=== PATIENT | male | born 1950 | race Caucasian/White ===

== ENCOUNTER → 2020-07-23 08:11 | Outpatient (CLI) | payer OTHER | END | disposition home or self-care (01) | LOC: D.MRI 08:11 | PROVIDERS: ATTEND Orthopaedic Surgery | DX: M54.5 Low back pain (principal) ==

== ENCOUNTER → 2021-02-11 10:09 | Outpatient (CLI) | payer OTHER ==
--- NOTE | 2021-02-08 13:23 | NUR ---
ATTEMPTED TO CONTACT PT TWICE FOR APPT CONFIRMATION ON THURSDAY - NO ANSWER. LEFT MESSAGE TO CALL BACK.
--- NOTE | ~2021-02-11 | HEMODYNAMI ---
PATIENT:JAMAL YAÑEZ MEDICAL RECORD: [id number] : 46 LOCATION:[facility] ADMISSION DATE: 02/11/21 Generatedon:110:48 Patient name: JAMAL YAÑEZ Patient #: [id number] SSN: : 1950 Date of study: 02/11/2021 Page: Of Hemodynamic Procedure Report Patient Data Patient Demographics Procedure consent was obtained First Name: JAMAL Gender: Male Last Name: OTILIO : 1950 Middle Initial: A Age: 70 year(s) Patient #: [id number] Race: Unknown Additional ID: [id number] Contact details Address: [place] [address] State: [place] City: [place] Zip code: [address] Past Medical History Allergies: No known allergies Admission Admission Data Admission Date: 02/11/2021 Admission Time: 10:09 Procedure Procedure Types Cath Procedure Peripheral Cath Diagnostic Procedure Miscellaneous Aspiration/Injection (Joint) Procedure Description Procedure Date Procedure Date: 02/11/2021 Procedure Start Time: 10:38 Procedure Staff Name Function James Husain MD Performing Physician Heather Malhotra RT Law Tutor Jaime Camacho RT Scrub Procedure Data Cath Procedure Fluoroscopy Diagnostic fluoroscopy Total fluoroscopy Time: 0.3 time: 0.3 min min Diagnostic fluoroscopy Total fluoroscopy dose: 38 dose: 38 mGy mGy Contrast Material Contrast Material Type Amount (ml) Isovue 200 7 Hemodynamics Rest Pre Cath Intra NCS Post Cath Procedure Log Time Note 10:23:33 SAFE-T PLUS MYELOGRAM TRAY opened to sterile field. 10:28:04 Time tracking: Regular hours (M-F 7:00 - 5:00) 10:28:20 Patient received from Other to IR Alert and oriented. Tansferred to table in Supine position. 10:28:23 Signed procedure consent form obtained from patient. 10:28:32 Patient allergic to No known allergies 10:28:39 Is patient on blood thinner?Yes,did not take for 2 days 10:28:59 - 10:29:10 Right Hip was prepped with betadine and draped in sterile fashion. 10:37:45 Physician arrived 10:37:46 --------ALL STOP TIME OUT------ 10:37:46 Final Timeout: patient, procedure, and site verified with staff and physician. All members of the team are in agreement. 10:37:48 Right groin site verified by team. 10:37:54 Sedation plan: Local Anesthetic Medication:Versed, Fentanyl 10:38:08 Procedure started. 10:38:09 Full Disclosure recording started 10:38:12 Local anesthetic to right femoral artery with Lidocaine 1% by James Husain MD.INITIAL ACCESS ONLY 10:47:31 5ml bupiviacaine,40mg/1ml injected into left hip joint 10:47:37 Procedure ended.(Physican Out) 10:47:49 Fluoroscopy time 00.30 minutes. 10:47:54 Fluoroscopy dose: 38 mGy 10:47:54 Flurop Dose total: 38 10:47:59 Contrast amount:Isovue 200 7ml. 10:48:02 Procedure and supply charges have been captured, reviewed, submitted an d are correct. 10:48:21 Patient transfered to Other with Ambulatory. Device Usage Item Name Manufacture Quantity Catalog Hospital Part Current Minimal Lot# / Number Charge Number Stock Stock Serial# Code SAFE-T [employer] 1 [id number] PLUS MYELOGRAM TRAY Signature Audit [place] Stage Time Signature Unsigned Intra-Procedure 02/11/2021 Heather Malhotra 10:48:41 AM RT(R) [facility] [address] [place] [address]
== END | disposition home or self-care (01) ==
LOC: D.RAD 10:09
PROVIDERS: ATTEND Orthopaedic Surgery
DX: M16.11 Unilateral primary osteoarthritis, right hip (principal)